=== PATIENT | male | born 1975 | race Asian ===

== ENCOUNTER 2017-05-12 22:25 | Emergency (ER) | payer OTHER ==
[~2017-05-12] VITALS: Ht 170.2 cm; Wt 79.4 kg
[2017-05-13 00:01] VITALS: BP 135/87; TEMP 98.9
== END 2017-05-13 00:14 ==
LOC: ED 22:25
DX: R07.89 Other chest pain (principal); R00.1 Bradycardia, unspecified
CPT/HCPCS: 36415; 82550; 82553; 84484; 99283

== ENCOUNTER 2017-05-25 08:17 | Emergency (ER) | payer OTHER ==
[~2017-05-25] VITALS: Ht 185.4 cm; Wt 77.1 kg
[2017-05-25 08:20] VITALS: BP 136/86; TEMP 98
== END 2017-05-25 08:33 | disposition left against medical advice (07) ==
LOC: ED 08:17
DX: I47.1 Supraventricular tachycardia (principal)
CPT/HCPCS: 93005; 99282

== ENCOUNTER → 2017-06-08 22:05 | Outpatient (CLI) | payer OTHER | END | disposition home or self-care (01) | LOC: AMB 22:05 | DX: I46.9 Cardiac arrest, cause unspecified (principal) ==